=== PATIENT | male | born 1990 ===

== ENCOUNTER 2025-06-13 09:43 | Emergency (ER) | payer OTHER ==
[2025-06-13] MEDS: Ketorolac 30 MG/ML SDV IM ONE (10:21)
== END 2025-06-13 11:37 | disposition home or self-care (01) ==
LOC: KA.ED 09:46
DX: G44.209 Tension-type headache, unspecified, not intractable (principal); M25.511 Pain in right shoulder; Z79.899 Other long term (current) drug therapy
CPT/HCPCS: 72040; 73030-RT; 96372; 99284; A9270-GY; J1885